=== PATIENT | male | born 1985 | race Caucasian/White ===

== ENCOUNTER 2021-10-21 01:44 | Inpatient (IN) ==
[2021-10-21 05:29] LABS: Influenza A PCR Negative (Negative); Influenza B PCR Negative (Negative); Resp. Syncytial Virus PCR Negative (Negative)
[2021-10-21 05:30] LABS: SARS-CoV-2 by PCR (In House) Negative (Negative)
[2021-10-21] MEDS ORDERED: *HR* LORazepam 1 MG TABLET PO PRN ×2 (05:36→06:45)
[2021-10-21] MEDS ORDERED: *HR* LORazepam 2 MG/ML VIAL IM PRN ×2 (05:36→06:45)
[2021-10-21] MEDS ORDERED: Haloperidol Lactate 5 MG/ML VIAL IM PRN ×2 (05:36→06:45)
[2021-10-21] MEDS ORDERED: haloperidoL 5 MG TABLET PO PRN ×2 (05:36→06:45)
[2021-10-21] MEDS ORDERED: traZODone 50 MG TABLET PO PRN ×2 (05:36→06:45)
[2021-10-21] MEDS ORDERED: hydrOXYzine pamoate 25 MG CAPSULE PO PRN ×2 (05:36→06:45)
[2021-10-21] MEDS ORDERED: Ibuprofen 400 MG TABLET PO PRN (06:00)
[2021-10-21] MEDS ORDERED: Acetaminophen 325 MG TABLET PO PRN (06:45)
[2021-10-21] MEDS: Nicotine 21 MG PATCH.TD24 TD SCH (12:45)
[2021-10-21] MEDS: Divalproex (12 HR) 250 MG TABLET PO SCH ×2 (13:44→20:37)
[2021-10-21] MEDS ORDERED: OLANZapine 5 MG TAB.RAPDIS PO ONE (14:00)
[2021-10-21] MEDS: Nicotine 2 MG GUM BC PRN (14:37)
[2021-10-21] MEDS ORDERED: Baclofen 10 MG TABLET PO PRN (15:15)
[2021-10-21] MEDS ORDERED: OLANZapine 5 MG TAB.RAPDIS PO SCH (18:00)
[2021-10-22] MEDS: Divalproex (12 HR) 250 MG TABLET PO SCH ×5 (09:11→20:22)
[2021-10-22] MEDS: Nicotine 21 MG PATCH.TD24 TD SCH (09:12)
[2021-10-22] MEDS: Nicotine 2 MG GUM BC PRN ×2 (17:20→18:41)
[2021-10-22] MEDS: OLANZapine 5 MG TAB.RAPDIS PO SCH (17:46)
[2021-10-23] MEDS: Nicotine 21 MG PATCH.TD24 TD SCH (10:56)
[2021-10-23] MEDS: Divalproex (12 HR) 250 MG TABLET PO SCH ×3 (10:58→20:24)
[2021-10-23] MEDS: Nicotine 2 MG GUM BC PRN ×2 (10:58→15:50)
[2021-10-23] MEDS: OLANZapine 5 MG TAB.RAPDIS PO SCH (17:00)
[2021-10-23 20:13] VITALS: O2SAT 97
[2021-10-24 08:47] VITALS: BP 126/68; PULSE 81; TEMP 97.6
[2021-10-24] MEDS: Divalproex (12 HR) 250 MG TABLET PO SCH (09:23)
[2021-10-24] MEDS: Nicotine 2 MG GUM BC PRN (09:23)
[2021-10-24] MEDS: Nicotine 21 MG PATCH.TD24 TD SCH (09:23)
== END 2021-10-24 10:25 | disposition other institution (70) | DRG 776 ==
LOC: EMEROOARM 01:44 → 1ANU 05:37
PROVIDERS: ADMIT Psychiatry & Neurology Forensic Psychiatry; ATTEND Psychiatry & Neurology Forensic Psychiatry